=== PATIENT | male | born 1950 | race Caucasian/White ===

== ENCOUNTER 2017-11-29 15:27 | Inpatient (IN) | payer MEDICARE ==
--- NOTE | 2017-11-29 15:33 | ED ---
Complex/Multi-Sys Presentation - HPI Summary HPI Summary: Spoke with Dr. Fowler prior to ED visit. 67 y/o male sent from outpatient CT scan c/o constant weakness for around 1 week. Associated sx: fever for 3-4 days. Pt has an abscess at his pelvis, per Dr. Fowler. Surgeon Dr. Yun at [facility]. Pt had Sx 11/12/17 prostate removal. PMHx prostate CA. Pt also c/o mild tenderness at site of surgery. Catheter in place. This is scribe Ed Jess documenting for attending Ricky Moreland MD. - History Of Current Complaint Hx Obtained From: Patient Onset/Duration: Lasting Days, Still Present Timing: Constant Associated Signs And Symptoms: Positive: Weakness, Fever, Other - pain at site of surgery - Allergies/Home Medications Allergies/Adverse Reactions: Allergies Allergy/AdvReac Type Severity Reaction Status Date / Time No Known Allergies Allergy Verified 12/29/16 15:17 Home Medications: Home Medications Calcipotriene 0.005 % TOPICAL DAILY PRN 11/29/17 [History Confirmed 11/29/17] Cholecalciferol TAB* [Vitamin D TAB*] 4,000 unit PO DAILY 11/29/17 [History Confirmed 11/29/17] Cyanocobalamin TAB* [Vitamin B12 TAB*] 500 mcg PO DAILY 11/29/17 [History Confirmed 11/29/17] Etanercept SYR (NF) [Enbrel (NF)] 50 mg SUBCUT WEEKLY 11/29/17 [History Confirmed 11/29/17] Folic Acid TAB* [Folvite TAB*] 1 mg PO DAILY 11/29/17 [History Confirmed ] Gabapentin CAP(*) [Neurontin 300 CAP(*)] 300 mg PO QAM 11/29/17 [History Confirmed 11/29/17] Gabapentin CAP(*) [Neurontin 300 CAP(*)] 600 mg PO BEDTIME 11/29/17 [History Confirmed 11/29/17] Hydrochlorothiazide TAB* [Hydrodiuril TAB*] 12.5 mg PO DAILY 11/29/17 [History Confirmed 11/29/17] Pyridoxine HCl (Vitamin B6) [Vitamin B-6] 100 mg PO DAILY 11/29/17 [History Confirmed 11/29/17] amLODIPine TAB* [Norvasc 5 mg TAB*] 10 mg PO DAILY 11/29/17 [History Confirmed 11/29/17] celeCOXIB CAP* [CeleBREX CAP*] 200 mg PO BID 11/29/17 [History Confirmed ] PMH/Surg Hx/FS Hx/Imm Hx Previously Healthy: No Endocrine/Hematology History: Denies: Hx Diabetes Cardiovascular History: Reports: Hx Hypertension - ON MEDS Denies: Hx Pacemaker/ICD History: Denies: Hx Renal Disease Musculoskeletal History: Reports: Hx Rheumatoid Arthritis Sensory History: Denies: Hx Hearing Aid Psychiatric History: Denies: Hx Panic Disorder - Surgical History Surgery Procedure, Year, and Place: TONSILS Review of Systems Positive: Fever. Negative: Chills Negative: Erythema Negative: Sore Throat Negative: Chest Pain Negative: Shortness Of Breath, Cough Positive: Abdominal Pain - at site of surgery. Negative: Vomiting, Nausea Negative: dysuria, hematuria Negative: Myalgia, Edema Negative: Rash Neurological: Other - no dizziness All Other Systems Reviewed And Are Negative: Yes Physical Exam - Summary Physical Exam Summary: Constitutional: Well-developed, Well-nourished, Alert. (-) Distressed Skin: Dry. Hot to touch, HENT: Normocephalic; Atraumatic Eyes: Conjunctiva normal Neck: Musculoskeletal ROM normal neck. (-) JVD, (-) Stridor, (-) Tracheal deviation Cardio: Rhythm regular, rate normal, Heart sounds normal; Intact distal pulses; The pedal pulses are 2+ and symmetric. Radial pulses are 2+ and symmetric. (-) Murmur Pulmonary/Chest wall: Effort normal. (-) Respiratory distress, (-) Wheezes, (-) Rales Abd: Soft, mild suprapubic tenderness, (-) Distension, (-) Guarding, (-) Rebound Musculoskeletal: (-) Edema Lymph: (-) Cervical adenopathy Neuro: Alert, Oriented x3 Psych: Mood and affect Normal Triage Information Reviewed: Yes Vital Signs Reviewed: Yes Diagnostics - Laboratory Result Diagrams: 11/29/17 15:50 11/29/17 15:50 Lab Statement: Any lab studies that have been ordered have been reviewed, and results considered in the medical decision making process. - Radiology CXR Radiology Interpretation Completed By: Radiologist - Pulmonary vascular congestion - Ultrasound No standard instances Ultrasound Interpretation Completed By: Radiologist - ABSCESS DRAINAGE ULTRASOUND - #. Successful ultrasound-guided drainage catheter placement 2 large loculated elevated fluid collection via RIGHT para midline groin approach. #. Sample sent to the lab for microbiology analysis per direction of referring physician. - EKG 1 EKG Interpretation: 15:42 - SR @ 96 BPM. No STEMI. Re-Evaluation - Re-Evaluation 1 Re-Evaluation Time: 16:28 Comment: discuss plan of care Complex Multi-Symp Course/Dx Course Of Treatment: Spoke with Dr. Yun ([facility] Surgeon) @ 16:07. Medical admit to [facility] by Dr. Damico. - Diagnoses Provider Diagnoses: Sepsis, Postoperative abscess - Physician Notifications Discussed Care Of Patient With: Marshall Yee Time Discussed With Above Provider: 15:48 Discharge - Sign-Out/Discharge Documenting (check all that apply): Patient Departure - Discharge Plan Condition: Stable Disposition: ADMITTED TO [facility] Referrals: Otoniel Alberto MD [Primary Care Provider] -
[2017-11-29] MEDS ORDERED: Vancomycin(*) 1,250 MG in NS 0.9% 250 ML* 250 ML IVPB ONE (15:35)
[2017-11-29] MEDS ORDERED: Piperacillin/Tazobac ADVAN(*) 3.375 GM in NS 0.9% 100 ML* 100 ML IVPB ONE (15:35)
[2017-11-29] MEDS: NS 0.9% 1000 ML*IV.FLUID IV ONE ×3 (15:38→16:02)
[2017-11-29] MEDS ORDERED: Acetaminophen TAB* 325 MG PO ONE (15:45)
[2017-11-29] MEDS ORDERED: metroNIDAZOLE IV 500 MG/100ML* 500 MG/100 ML BAG IVPB ONE (15:47)
[2017-11-29 16:02] LABS: ABS Basophils 0 10^3/ul (0-0.2); ABS Eosinophils 0 10^3/ul (0-0.6); ABS Lymphocytes 0.5 10^3/ul (1.0-4.8); ABS Monocytes 0.9 10^3/ul (0-0.8); ABS Neutrophils 10.9 10^3/ul (1.5-7.7); ABS Nucleated RBC 0 10^3/ul; Eosinophil % 0.1 % (0-6); Hematocrit 29 % (42-52); Hemoglobin 10.2 g/dl (14.0-18.0); Lymphocyte % 4.4 % (25-47); Mean Corpuscular HGB Conc 35 g/dl (31-36); Mean Corpuscular Hemoglobin 33 pg (27-31); Mean Corpuscular Volume 95 fL (80-94); Mean Platelet Volume 7.4 um3 (7.4-10.4); Nucleated Red Blood Cells % 0; Platelet Count 328 10^3/ul (150-450); Red Blood Count 3.08 10^6/ul (4.00-5.40); Red Cell Distribution Width 15 % (10.5-15); White Blood Count 12.4 10^3/ul (3.5-10.8)
[2017-11-29 16:10] LABS: INR 1.37 (0.77-1.02)
--- NOTE | 2017-11-29 16:21 | RAD ---
HISTORY: SEPSIS COMPARISONS: None VIEWS: 1: frontal portable view of the chest at 4:03 PM FINDINGS: LINES AND TUBES: None. CARDIOMEDIASTINAL SILHOUETTE: The cardiomediastinal silhouette is normal for portable technique. PLEURA: The costophrenic angles are sharp. No pleural abnormalities are noted. LUNG PARENCHYMA: There is prominence of the central pulmonary vasculature. ABDOMEN: The upper abdomen is clear. There is no subphrenic gas. BONES AND SOFT TISSUES: No bone or soft tissue abnormalities are noted. IMPRESSION: PULMONARY VASCULAR CONGESTION.
[2017-11-29] MEDS ORDERED: fentaNYL* 50 MCG/ML 2 ML VIAL (100 MCG VIAL) ONE (16:24)
[2017-11-29] MEDS ORDERED: Naloxone* 0.4 MG/ML 1 ML VIAL ONE (16:25)
[2017-11-29 16:27] LABS: EGFR Non-African American 71.8 (>60)
--- NOTE | 2017-11-29 17:48 | RAD ---
INDICATION: 2.5 weeks post prostatectomy. Fever and elevated white count. Large loculated pelvic fluid collection on CT. Image guided percutaneous abscess drainage catheter placement requested. COMPARISON: November 29, 2017 CT. Written informed consent obtained. Timeout performed. PROCEDURE: Suitable site for percutaneous drainage catheter placement identified at the para midline RIGHT groin medial to the femoral vessels and inferior to the inferior epigastric vessels. Doppler utilized for identification of the blood vessels. Inferior to cephalad approach planned. Following routine aseptic skin prep the soft tissues superficial to the collection were anesthetized with 5 mL 1% lidocaine. Through a small skin niko utilizing trocar technique an 8-Brazilian skater catheter was advanced into the collection. Stylette removed and catheter advanced. Prompt return of approximate 50 mL clear straw fluid. Pigtail locked. Catheter attached to drainage bag. Catheter tethered to the skin with Prolene suture. The patient tolerated the procedure without immediate complication. IMPRESSION: #. Successful ultrasound-guided drainage catheter placement 2 large loculated elevated fluid collection via RIGHT para midline groin approach. #. Sample sent to the lab for microbiology analysis per direction of referring physician.
[2017-11-29] MEDS ORDERED: Potassium Chlor TAB* 20 MEQ TAB.ER PO STA (18:43)
[2017-11-29] MEDS ORDERED: NS 0.9% 1000 ML* 1,000 ML IV SCH (18:45)
[2017-11-29] MEDS ORDERED: Vancomycin per Pharmacy* NOTE FOLLOW UP PRN (19:46)
--- NOTE | 2017-11-29 20:01 | HP ---
ADMITTING HISTORY AND PHYSICAL: DATE OF ADMISSION: 11/29/17 CHIEF COMPLAINT: Weakness and fever. HISTORY OF PRESENT ILLNESS: The patient is a 67-year-old gentleman with history of rheumatoid arthritis, hypertension, and prostate carcinoma, status post robotic prostatectomy in [facility] on 11/12/17, who presented with the above chief complaint. He mentions that since his recent surgery, he has been doing well; and, in fact, had seen his doctors in [facility] on 11/21/17 for a followup; however, at that time, they noted that his catheter could not be removed and in fact may have had some urine leak at that time. He was then sent home and was observed and since then, he mentions that he has been feeling weak for at least about a week and this then gradually progressed to him having fever about 3 to 4 days prior to admission prompting him to call his doctors in [facility], who then suggested that he have a CT scan of his abdomen and pelvis. He was then referred to the ER for possibility of a pelvic abscess. In the ED, Dr. Yee then informed the patient, who evaluated the patient, who agreed with percutaneous drain placement being placed by Interventional Radiology. In the ED, he had received Zosyn, vancomycin, 1 L normal saline bolus, Tylenol, and Flagyl. PAST MEDICAL HISTORY: Prostate CA, rheumatoid arthritis, hypertension, psoriatic arthritis, and neuropathy. PAST SURGICAL HISTORY: Status post robotic prostatectomy. ALLERGIES: NKDA. FAMILY HISTORY: Breast cancer, his mother and sister; hypertension, his father. 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 He quit smoking back in 2010 and has an average of 20-pack years. He does drink occasionally. He lives with his . REVIEW OF SYSTEMS: The patient complained of weakness and recent febrile episode as described above and hematuria, but denied any recent headaches, dizziness, nausea, vomiting, chest pain, shortness of breath, abdominal pain, diarrhea, constipation, myalgias, arthralgias, throat pain, or new skin lesions. The rest of the 14-point review of systems is otherwise unremarkable. PHYSICAL EXAMINATION GENERAL APPEARANCE: The patient is awake, alert, and oriented x3, not in acute distress. VITAL SIGNS: Most recent vital signs of record with temperature of 100.7 degrees Fahrenheit, 83 beats per minute, 20 per minute respiratory rate, blood pressure of 142/59. HEENT: Normocephalic, atraumatic. PERRLA. Extraocular muscles intact. Negative for icterus. Moist oral mucosa. Negative throat erythema. NECK: Soft, supple with no cervical lymphadenopathy, no JVD. CHEST: Clear to auscultation bilaterally. Good air entry. No wheezes, rales, or rhonchi. HEART: S1, S2 within normal limits. Regular rate and rhythm. No murmurs, rubs , or gallops. ABDOMEN: Soft, nondistended, nontender. Normoactive bowel sounds x4 quadrants. EXTREMITIES: No cyanosis, clubbing with mild 1+ nonpitting edema. DIAGNOSTIC STUDIES/LAB DATA: Most recent pertinent laboratories: H and H are 10.7 and 29. Potassium is mildly low at 3.4. Ultrasound showed successful ultrasound-guided drainage in place in the loculations found. Chest x-ray shows pulmonary vascular congestion. ASSESSMENT AND PLAN: As follows: 1. Pelvic abscess, status post drainage placement. We will continue with Zosyn and vancomycin at this time and we will continue to follow cultures. I will decrease the rate of IV fluids to 100 cc given the above chest x-ray, although he does not show other signs and symptoms that would be consistent with congestive heart failure and he is certainly not short of breath. Will consider ID consultation in AM 2. Hypokalemia. We will replace potassium as ordered and we will continue watchful waiting. 3. Hypertension. Continue amlodipine. 4. Anemia, likely secondary to gross hematuria. We will check iron studies, B12, and folate levels. We will check for type and screen and we will recheck CBC at 12 a.m. and we will continue watchful waiting. 5. Peripheral neuropathy. We will place the patient on gabapentin. 6. DVT prophylaxis. It is contraindicated at this point given his gross hematuria and anemia. 7. Disposition. For PT eval. We will await any further input from Dr. Yee/Urology. [id number]/[facility] #: [id number] OLYA
[2017-11-29] MEDS: Piperacillin/Tazobac ADVAN(*) 3.375 GM in NS 0.9% 100 ML* 100 ML IVPB SCH (20:15)
[2017-11-29] MEDS: Gabapentin CAP(*) 300 MG PO SCH (20:15)
[2017-11-29 20:34] LABS: Urine Color Red
[2017-11-29 20:37] LABS: Urine Appearance Cloudy; Urine Blood 3+ (Negative); Urine Ketones Negative (Negative); Urine Protein 2+(100 mg/dL) (Negative); Urine Red Blood Cell 3+(>10/hpf) (Absent); Urine Specific Gravity 1.024 (1.010-1.030); Urine Urobilinogen Negative (Negative); Urine White Blood Cell 3+(>20/hpf) (Absent)
[2017-11-30 00:41] LABS: ABS Basophils 0 10^3/ul (0-0.2); ABS Eosinophils 0 10^3/ul (0-0.6); ABS Lymphocytes 1.2 10^3/ul (1.0-4.8); ABS Monocytes 1.1 10^3/ul (0-0.8); ABS Neutrophils 5.6 10^3/ul (1.5-7.7); ABS Nucleated RBC 0 10^3/ul; Eosinophil % 0.3 % (0-6); Hematocrit 29 % (42-52); Hemoglobin 10.1 g/dl (14.0-18.0); Lymphocyte % 15.5 % (25-47); Mean Corpuscular HGB Conc 34 g/dl (31-36); Mean Corpuscular Hemoglobin 33 pg (27-31); Mean Corpuscular Volume 96 fL (80-94); Mean Platelet Volume 7.6 um3 (7.4-10.4); Nucleated Red Blood Cells % 0; Platelet Count 312 10^3/ul (150-450); Red Blood Count 3.05 10^6/ul (4.00-5.40); Red Cell Distribution Width 14 % (10.5-15)
[2017-11-30] MEDS: Piperacillin/Tazobac ADVAN(*) 3.375 GM in NS 0.9% 100 ML* 100 ML IVPB SCH ×3 (03:51→20:26)
[2017-11-30] MEDS: Acetaminophen TAB* 325 MG PO PRN ×2 (05:22→21:45)
[2017-11-30] MEDS ORDERED: Vancomycin(*) 1,250 MG in NS 0.9% 250 ML* 250 ML IVPB SCH (06:00)
[2017-11-30 06:25] LABS: Hematocrit 26 % (42-52); Mean Corpuscular HGB Conc 35 g/dl (31-36); Mean Corpuscular Hemoglobin 33 pg (27-31); Mean Corpuscular Volume 95 fL (80-94); Mean Platelet Volume 7.9 um3 (7.4-10.4); Platelet Count 269 10^3/ul (150-450); Red Blood Count 2.74 10^6/ul (4.00-5.40); Red Cell Distribution Width 14 % (10.5-15); White Blood Count 6.5 10^3/ul (3.5-10.8)
[2017-11-30 06:46] LABS: EGFR Non-African American 80.8 (>60)
[2017-11-30] MEDS: Gabapentin CAP(*) 300 MG PO SCH ×2 (08:53→20:26)
[2017-11-30] MEDS: Cholecalciferol TAB* 1000 UNITS PO SCH (08:55)
[2017-11-30] MEDS: Pyridoxine TAB* 50 MG PO SCH (08:56)
[2017-11-30] MEDS: amLODIPine TAB* 5 MG PO SCH (08:57)
[2017-11-30] MEDS: Cyanocobalamin TAB* 500 MCG PO SCH (08:58)
[2017-11-30] MEDS: Folic Acid TAB* 1 MG PO SCH (08:58)
[2017-11-30] MEDS ORDERED: Potassium Chlor TAB* 20 MEQ TAB.ER PO STA (09:05)
[2017-11-30 13:29] LABS: ABS Basophils 0 10^3/ul (0-0.2); ABS Eosinophils 0 10^3/ul (0-0.6); ABS Monocytes 0.7 10^3/ul (0-0.8); ABS Neutrophils 5.1 10^3/ul (1.5-7.7); ABS Nucleated RBC 0 10^3/ul; Eosinophil % 0.5 % (0-6); Hematocrit 30 % (42-52); Hemoglobin 10.1 g/dl (14.0-18.0); Lymphocyte % 14.9 % (25-47); Mean Corpuscular HGB Conc 34 g/dl (31-36); Mean Corpuscular Hemoglobin 33 pg (27-31); Mean Corpuscular Volume 96 fL (80-94); Mean Platelet Volume 7.6 um3 (7.4-10.4); Nucleated Red Blood Cells % 0; Platelet Count 311 10^3/ul (150-450); Red Blood Count 3.09 10^6/ul (4.00-5.40); Red Cell Distribution Width 15 % (10.5-15); White Blood Count 6.9 10^3/ul (3.5-10.8)
--- NOTE | 2017-11-30 15:42 | PN ---
Subjective Date of Service: 11/30/17 Interval History: Pt seen and examined. Meds and labs reviewed ROS: Denied JACOBS/dizziness, F/C, N/V, CP, SOB, increased cough, sputum production , abd pain, diarrhea, constipation, dysuria, myalgias, arthralgias, throat pain , and new skin lesions. The rest of the 14 point ROS are unremarkable. PHYSICAL EXAM: GEN APPEARANCE: Awake, not in acute distress HEENT: NC/AT, PERRLA, moist oral mucosa, (-) throat erythema NECK: Soft, supple, (-) cervical LAD, (-)JVD HEART: S1S2 WNL, RRR, No MRG CHEST: CTA, BL, GAE, No W/R/R ABD: Soft, ND/NT, NABS 4x Q EXT: No C/C/E SKIN: Warm to touch PSYCH: No active psychosis, hallucinations, depression, SI/HI Objective Active Medications: Acetaminophen (Tylenol Tab*) 650 mg PO Q6H PRN PRN Reason: FEVER/PAIN Last Admin: 11/30/17 05:22 Dose: 650 mg Amlodipine Besylate (Norvasc Tab*) 10 mg PO DAILY [facility] Last Admin: 11/30/17 08:57 Dose: 10 mg Cholecalciferol (Vitamin D Tab*) 4,000 units PO DAILY [facility] Last Admin: 11/30/17 08:55 Dose: 4,000 units Cyanocobalamin (Vitamin B12 Tab*) 500 mcg PO DAILY [facility] Last Admin: 11/30/17 08:58 Dose: 500 mcg Folic Acid (Folvite Tab*) 1 mg PO DAILY [facility] Last Admin: 11/30/17 08:58 Dose: 1 mg Gabapentin (Neurontin Cap(*)) 300 mg PO QAM [facility] Last Admin: 11/30/17 08:53 Dose: 300 mg Gabapentin (Neurontin Cap(*)) 600 mg PO BEDTIME [facility] Last Admin: 11/29/17 20:15 Dose: 600 mg Piperacillin Sod/Tazobactam (Sod 3.375 gm/ Sodium Chloride) 100 mls @ 25 mls/ hr IVPB Q8H [facility] Last Admin: 11/30/17 13:09 Dose: 25 mls/hr Pyridoxine HCl (Vitamin B6 Tab*) 100 mg PO DAILY [facility] Last Admin: 11/30/17 08:56 Dose: 100 mg Vital Signs - 8 hr 11/30/17 08:53 Respiratory 18 Rate Oxygen Devices in Use Now: None Result Diagrams: 11/30/17 13:07 11/30/17 06:12 Microbiology and Other Data: Microbiology 11/29/17 20:20 Urine Culture - Preliminary Urine Enterococcus Faecalis 11/29/17 17:25 Gram Stain - Final Body Fluid - Not Otherwise Specified Body Fluid Culture - Preliminary No Growth Day 1 Assess/Plan/Problems-Billing Assessment: - Patient Problems (1) Pelvic mass Current Visit: Yes Status: Acute Code(s): R19.00 - INTRA-ABD AND PELVIC SWELLING, MASS AND LUMP, UNSP SITE SNOMED Code(s): 78031833 Comment: -Presumed abscess -D/W Dr. Mortensen who mentions that the pelvic mass may be a seroma given fluid in pelvic percutaneous drain appears yellowish serous fluid in comparison to urine in catheter, which is grossly bloodyunclear why there is this discrepancy if the pelvic drain is also due to urine. Per Dr. Mortensen, he will obtain creatinine of each of these fluids to compare to see -Given Urine culture shows E. fecalis and fluid culture is normal, vancomycin has been recommended to be D/Cddefer with Dr. Mortensen -Will Continue Zosyn (2) Hypokalemia Current Visit: Yes Status: Acute Code(s): E87.6 - HYPOKALEMIA SNOMED Code( s): 41007628 Comment: -Corrected -Will continue watchful waiting (3) Anemia Current Visit: Yes Status: Acute Code(s): D64.9 - ANEMIA, UNSPECIFIED SNOMED Code(s): 291610508 Comment: #Anemia of chronic disease with Iron deficiency Anemia: -SIMEON is likely due to gross hematuria -AOCD is likely due to multiple comorbidities such as psoriatic arthritis and RA -Will give pt IV Iron Dextran and will touch base with pharmacy to independently verify calculations, then will order to replenish Iron stores -Folate and B12 levels normal (4) Hypokalemia Current Visit: Yes Status: Acute Code(s): E87.6 - HYPOKALEMIA SNOMED Code( s): 53948942 Comment: -Corrected -Continue watchful waiting (5) Peripheral neuropathy Current Visit: Yes Status: Acute Code(s): G62.9 - POLYNEUROPATHY, UNSPECIFIED SNOMED Code(s): 959015832 Comment: -Idiopathic -Continue Gabapentin (6) DVT prophylaxis Current Visit: Yes Status: Acute Code(s): ODS2868 - SNOMED Code(s): 728213488 Comment: -Hold pharmacologic prophylaxis -Continue SCDs and FLORA stockings Status and Disposition: -As above -For D/C home when ready -Appreciate PT eval
[2017-11-30] MEDS ORDERED: NS 0.9% IVPB ONE (16:00)
[2017-11-30] MEDS ORDERED: IRON SUCROSE IVPB ONE (16:00)
--- NOTE | 2017-11-30 16:34 | CONS ---
CONSULTATION REPORT: DATE OF CONSULT: 11/30/17 REQUESTING PHYSICIAN: Dr. Joseph. CONSULTING SERVICE: Infectious Disease. REASON FOR CONSULT: Pelvic collection. IMPRESSION: 1. Status post robotic total prostatectomy, 11/12/17. He did well initially. At a recent followup, imaging there led his urologist not to remove the Maguire catheter. Few days later developed fevers, chills, malaise, led his urologist to obtain a CT scan that showed a 13 x 5 x 16 cm collection, which is loculated and enhancing from the prostatic fossa to behind the bladder. He had a drain placed by Interventional Radiology. The fluid in his leg bag looks like urine. Gram stain shows nucleated cells, no organisms and the cultures negative 24 hours. He either has an abscess there or collection leaked urine. The fact that it is enhancing and that he has had fever does not necessitate this being an abscess. He could have a same inflammatory response to urine. He has pyuria as well, urine culture is pending. 2. Prostate cancer, status post prostatectomy. 3. Obesity. 4. Maguire catheter since his prostatectomy. 5. Rheumatoid arthritis, on Enbrel. RECOMMENDATIONS: We will continue the Zosyn to cover abdominal pathogen. We will stop his vancomycin. He has creatinine studies of the urine and body fluid pending. HISTORY OF PRESENT ILLNESS: This is a 67-year-old man who had a prostatectomy early November. He was doing well initially and was unable to have the Maguire catheter removed at the 2-week palak as previously suggested because of some imaging results obtained with his urologist. He did note blood around the Maguire catheter over the last couple of weeks and has had blood in his urine the whole time. He felt well until few days ago, developed fevers, chills, malaise. His urologist obtained a CT scan with the findings as above and then directed him to the emergency room where he was seen by Dr. Yee who obtained interventional radiology evaluation who drained the collection. Gram stain and culture result as above. His temperature was 40 degrees on admission. He has not had a fever since then and his energy and rigors are much better. He then felt like his usual self, not quite back there yet though. He has no other prosthetic material present. He has no joint symptoms other than his baseline issues. PAST MEDICAL HISTORY: 1. Rheumatoid arthritis. 2. Obesity. 3. Psoriatic arthritis. 4. Hypertension. 5. Neuropathy. 6. Prostate cancer, status post prostatectomy. MEDICATIONS: 1. Tylenol. 2. Amlodipine. 3. Cholecalciferol. 4. Cyanocobalamin. 5. Folic acid. 6. Gabapentin. 7. Pyridoxine. 8. Vancomycin 1250 mg every 12 hours. 9. Zosyn 3.375 g every 8 hours by extended infusion. ALLERGIES: No known drug allergies. FAMILY HISTORY: No recurrent infections or tuberculosis. SOCIAL HISTORY: He lives in [place]. 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 No travel. No sick contacts. REVIEW OF SYSTEMS: All negative except as noted above in the history of present illness. PHYSICAL EXAM: Vital Signs: Temperature is 37.2, heart rate 80, respiratory rate 16, blood pressure 134/60, oxygen saturation 99% on room air. In general, he is awake, not in distress. Neurologic: He is oriented x3. Follows all commands. He moves all of his extremities. HEENT: There is no conjunctival hemorrhage. Oropharynx is without lesions. Neck is supple without mass. Heart is regular rate and rhythm without murmurs, rubs, or gallops. Lungs are clear to auscultation bilaterally. Abdomen: There are bowel sounds present. The lower abdominal incisions are all healed without erythema or tenderness. Skin: There is no rash or splinter hemorrhages. Musculoskeletal: There is no spine tenderness to palpation. No joint synovitis. Genitourinary: There is a Maguire catheter with reddish urine. There is a pelvic drain that is with clear yellowish fluid. LABORATORY DATA: White blood cell count 7, hemoglobin 10, platelets 311. Creatinine 0.9. CRP 240. Please see impressions and recommendations as outlined above, which I have discussed with Dr. Joseph. Thanks for asking me to see Mr. Small in consultation. [id number]/[facility] #: [id number] OLYA
[2017-12-01] MEDS: Piperacillin/Tazobac ADVAN(*) 3.375 GM in NS 0.9% 100 ML* 100 ML IVPB SCH (03:50)
[2017-12-01] MEDS ORDERED: Vancomycin Trough Check NOTE FOLLOW UP ONE (05:30)
[2017-12-01 07:11] LABS: EGFR Non-African American 93.4 (>60)
[2017-12-01] MEDS: Pyridoxine TAB* 50 MG PO SCH (08:13)
[2017-12-01] MEDS: Folic Acid TAB* 1 MG PO SCH (08:13)
[2017-12-01] MEDS: Acetaminophen TAB* 325 MG PO PRN ×2 (08:13→15:51)
[2017-12-01] MEDS: Cholecalciferol TAB* 1000 UNITS PO SCH (08:13)
[2017-12-01] MEDS: Gabapentin CAP(*) 300 MG PO SCH ×2 (08:14→20:36)
[2017-12-01] MEDS: amLODIPine TAB* 5 MG PO SCH (08:14)
[2017-12-01] MEDS: Cyanocobalamin TAB* 500 MCG PO SCH (08:14)
[2017-12-01] MEDS: Amoxicillin/Clavulanate TAB* 875 MG PO SCH ×2 (12:49→20:37)
--- NOTE | 2017-12-01 14:31 | PN ---
Subjective Date of Service: 12/01/17 Interval History: Pt seen and examined. Meds and labs reviewed ROS: Denied JACOBS/dizziness, F/C, N/V, CP, SOB, increased cough, sputum production , abd pain, diarrhea, constipation, dysuria, myalgias, arthralgias, throat pain , and new skin lesions. The rest of the 14 point ROS are unremarkable. PHYSICAL EXAM: GEN APPEARANCE: Awake, not in acute distress HEENT: NC/AT, PERRLA, moist oral mucosa, (-) throat erythema NECK: Soft, supple, (-) cervical LAD, (-)JVD HEART: S1S2 WNL, RRR, No MRG CHEST: CTA, BL, GAE, No W/R/R ABD: Soft, ND/NT, NABS 4x Q EXT: No C/C/E SKIN: Warm to touch PSYCH: No active psychosis, hallucinations, depression, SI/HI Objective Active Medications: Acetaminophen (Tylenol Tab*) 650 mg PO Q6H PRN PRN Reason: FEVER/PAIN Last Admin: 12/01/17 08:13 Dose: 650 mg Amlodipine Besylate (Norvasc Tab*) 10 mg PO DAILY [facility] Last Admin: 12/01/17 08:14 Dose: 10 mg Amoxicillin/Clavulanate Potassium (Augmentin Tab*) 875 mg PO BID [facility] Last Admin: 12/01/17 12:49 Dose: 875 mg Cholecalciferol (Vitamin D Tab*) 4,000 units PO DAILY [facility] Last Admin: 12/01/17 08:13 Dose: 4,000 units Cyanocobalamin (Vitamin B12 Tab*) 500 mcg PO DAILY [facility] Last Admin: 12/01/17 08:14 Dose: 500 mcg Folic Acid (Folvite Tab*) 1 mg PO DAILY [facility] Last Admin: 12/01/17 08:13 Dose: 1 mg Gabapentin (Neurontin Cap(*)) 300 mg PO QAM [facility] Last Admin: 12/01/17 08:14 Dose: 300 mg Gabapentin (Neurontin Cap(*)) 600 mg PO BEDTIME [facility] Last Admin: 11/30/17 20:26 Dose: 600 mg Pyridoxine HCl (Vitamin B6 Tab*) 100 mg PO DAILY [facility] Last Admin: 12/01/17 08:13 Dose: 100 mg Vital Signs - 8 hr 12/01/17 12/01/1718 07:30 08:14 09:02 Temperature 98.5 F Pulse Rate 75 Respiratory 20 18 18 Rate Blood Pressure 130/68 (mmHg) O2 Sat by Pulse 94 Oximetry Oxygen Devices in Use Now: None Result Diagrams: 11/30/17 13:07 12/01/17 06:29 Microbiology and Other Data: Microbiology 11/29/17 20:20 Urine Culture - Preliminary Urine Enterococcus Faecalis 11/29/17 17:25 Gram Stain - Final Body Fluid - Not Otherwise Specified Body Fluid Culture - Preliminary No Growth Day 1 Assess/Plan/Problems-Billing Assessment: - Patient Problems (1) Pelvic mass Current Visit: Yes Status: Acute Code(s): R19.00 - INTRA-ABD AND PELVIC SWELLING, MASS AND LUMP, UNSP SITE SNOMED Code(s): 82751210 Comment: -Presumed abscess on admission, however, 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 fecalis consistent with Urine culture -D/W Dr. Nguyễn today and reviewed laboratory data with him in person; given elevated creatinine in fluid collection, it seems the fluid is consistent with urine that is loculated from a likely bleeding surgical anastomosiscausing gross hematuria; Dr. Nguyễn mentions he will touch-base with Urologist in [facility] -Given Urine culture shows E. fecalis and fluid culture is normal, vancomycin has been recommended to be D/Cddefer with Dr. Solano -Continue Zosyn for 1 more day and if blood cultures continue to be negative by tomorrow with stable and improving clinical picture, consider narrowing antibiotic to Quinolones based on sensitivity data to E. fecalis in Urine culture (2) Anemia Current Visit: Yes Status: Acute Code(s): D64.9 - ANEMIA, UNSPECIFIED SNOMED Code(s): 271637832 Comment: #Anemia of chronic disease with Iron deficiency Anemia: -SIMEON is likely due to gross hematuria -AOCD is likely due to multiple comorbidities such as psoriatic arthritis and RA -Given 500 mg of Iron Sucrose 11/30 -Folate and B12 levels normal (3) Hypokalemia Current Visit: Yes Status: Acute Code(s): E87.6 - HYPOKALEMIA SNOMED Code( s): 61148017 Comment: -Continue watchful waiting (4) Peripheral neuropathy Current Visit: Yes Status: Acute Code(s): G62.9 - POLYNEUROPATHY, UNSPECIFIED SNOMED Code(s): 159049168 Comment: -Idiopathic -Continue Gabapentin (5) DVT prophylaxis Current Visit: Yes Status: Acute Code(s): FMV3440 - SNOMED Code(s): 281597652 Comment: -Hold pharmacologic prophylaxis -Continue SCDs and FLORA stockings Status and Disposition: -As above -For D/C home when ready -Appreciate PT eval
[2017-12-02 07:20] LABS: ABS Basophils 0 10^3/ul (0-0.2); ABS Eosinophils 0.2 10^3/ul (0-0.6); ABS Lymphocytes 1.2 10^3/ul (1.0-4.8); ABS Monocytes 0.7 10^3/ul (0-0.8); ABS Neutrophils 6.1 10^3/ul (1.5-7.7); ABS Nucleated RBC 0 10^3/ul; Eosinophil % 2.2 % (0-6); Hematocrit 30 % (42-52); Hemoglobin 10.7 g/dl (14.0-18.0); Lymphocyte % 14.5 % (25-47); Mean Corpuscular HGB Conc 36 g/dl (31-36); Mean Corpuscular Hemoglobin 34 pg (27-31); Mean Corpuscular Volume 94 fL (80-94); Mean Platelet Volume 7.3 um3 (7.4-10.4); Nucleated Red Blood Cells % 0; Platelet Count 337 10^3/ul (150-450); Red Cell Distribution Width 15 % (10.5-15); White Blood Count 8.2 10^3/ul (3.5-10.8)
[2017-12-02 07:39] LABS: EGFR Non-African American 96.1 (>60)
[2017-12-02] MEDS: Pyridoxine TAB* 50 MG PO SCH (08:45)
[2017-12-02] MEDS: Acetaminophen TAB* 325 MG PO PRN (08:46)
[2017-12-02] MEDS: Gabapentin CAP(*) 300 MG PO SCH ×2 (08:46→22:16)
[2017-12-02] MEDS: Cholecalciferol TAB* 1000 UNITS PO SCH (08:47)
[2017-12-02] MEDS: Cyanocobalamin TAB* 500 MCG PO SCH (08:48)
[2017-12-02] MEDS: amLODIPine TAB* 5 MG PO SCH (08:48)
[2017-12-02] MEDS: Folic Acid TAB* 1 MG PO SCH (08:48)
[2017-12-02] MEDS: Amoxicillin/Clavulanate TAB* 875 MG PO SCH ×2 (08:49→22:17)
--- NOTE | 2017-12-02 12:47 | PN ---
Subjective Date of Service: 12/02/17 Interval History: Pt seen and examined. Meds and labs reviewed ROS: Denied JACOBS/dizziness, F/C, N/V, CP, SOB, increased cough, sputum production , abd pain, diarrhea, constipation, dysuria, myalgias, arthralgias, throat pain , and new skin lesions. The rest of the 14 point ROS are unremarkable. PHYSICAL EXAM: GEN APPEARANCE: Awake, not in acute distress HEENT: NC/AT, PERRLA, moist oral mucosa, (-) throat erythema NECK: Soft, supple, (-) cervical LAD, (-)JVD HEART: S1S2 WNL, RRR, No MRG CHEST: CTA, BL, GAE, No W/R/R ABD: Soft, ND/NT, NABS 4x Q EXT: No C/C/E SKIN: Warm to touch PSYCH: No active psychosis, hallucinations, depression, SI/HI Objective Active Medications: Acetaminophen (Tylenol Tab*) 650 mg PO Q6H PRN PRN Reason: FEVER/PAIN Last Admin: 12/02/17 08:46 Dose: 650 mg Amlodipine Besylate (Norvasc Tab*) 10 mg PO DAILY [facility] Last Admin: 12/02/17 08:48 Dose: 10 mg Amoxicillin/Clavulanate Potassium (Augmentin Tab*) 875 mg PO BID [facility] Last Admin: 12/02/17 08:49 Dose: 875 mg Cholecalciferol (Vitamin D Tab*) 4,000 units PO DAILY [facility] Last Admin: 12/02/17 08:47 Dose: 4,000 units Cyanocobalamin (Vitamin B12 Tab*) 500 mcg PO DAILY [facility] Last Admin: 12/02/17 08:48 Dose: 500 mcg Folic Acid (Folvite Tab*) 1 mg PO DAILY [facility] Last Admin: 12/02/17 08:48 Dose: 1 mg Gabapentin (Neurontin Cap(*)) 300 mg PO QAM [facility] Last Admin: 12/02/17 08:46 Dose: 300 mg Gabapentin (Neurontin Cap(*)) 600 mg PO BEDTIME [facility] Last Admin: 12/01/17 20:36 Dose: 600 mg Pyridoxine HCl (Vitamin B6 Tab*) 100 mg PO DAILY [facility] Last Admin: 12/02/17 08:45 Dose: 100 mg Vital Signs - 8 hr 12/02/17 12/02/1718 07:10 08:00 08:46 Temperature 98.4 F Pulse Rate 78 Respiratory 16 16 16 Rate Blood Pressure 123/65 (mmHg) O2 Sat by Pulse 95 Oximetry 12/02/17 10:48 Temperature Pulse Rate Respiratory 16 Rate Blood Pressure (mmHg) O2 Sat by Pulse Oximetry Oxygen Devices in Use Now: None Result Diagrams: 12/02/17 07:00 12/02/17 07:00 Microbiology and Other Data: Microbiology 11/29/17 20:20 Urine Culture - Preliminary Urine Enterococcus Faecalis 11/29/17 17:25 Gram Stain - Final Body Fluid - Not Otherwise Specified Body Fluid Culture - Preliminary No Growth Day 1 Assess/Plan/Problems-Billing Assessment: - Patient Problems (1) Pelvic mass Current Visit: Yes Status: Acute Code(s): R19.00 - INTRA-ABD AND PELVIC SWELLING, MASS AND LUMP, UNSP SITE SNOMED Code(s): 97819410 Comment: -Presumed abscess on admission, however, 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 fecalis consistent with UTI in urinalysis -D/W Dr. Nguyễn and reviewed laboratory data with him in person; given elevated creatinine in fluid collection, it seems the fluid is consistent with urine that is loculated from a likely bleeding surgical anastomosiscausing gross hematuria; Dr. Nguyễn mentions he will touch-base with Urologist in [facility] -Given Urine culture shows E. fecalis and fluid culture is normal, vancomycin has been recommended to be D/Cddefer with Dr. Solano -Continue Augmentin likely for 10-14 days; will confirm duration with Dr. Solano in AM prior to planned D/C (2) Anemia Current Visit: Yes Status: Acute Code(s): D64.9 - ANEMIA, UNSPECIFIED SNOMED Code(s): 932927403 Comment: #Anemia of chronic disease with Iron deficiency Anemia: -SIMEON is likely due to gross hematuria -AOCD is likely due to multiple comorbidities such as psoriatic arthritis and RA -Given 500 mg of Iron Sucrose 11/30 -Folate and B12 levels normal (3) Hypokalemia Current Visit: Yes Status: Acute Code(s): E87.6 - HYPOKALEMIA SNOMED Code( s): 61077974 Comment: -Resolved -Continue watchful waiting (4) Peripheral neuropathy Current Visit: Yes Status: Acute Code(s): G62.9 - POLYNEUROPATHY, UNSPECIFIED SNOMED Code(s): 666372940 Comment: -Idiopathic -Continue Gabapentin (5) DVT prophylaxis Current Visit: Yes Status: Acute Code(s): AAM9482 - SNOMED Code(s): 710257219 Comment: -Hold pharmacologic prophylaxis -Continue SCDs and FLORA stockings Status and Disposition: -As above -For possible D/C home in AM -Appreciate PT eval
[2017-12-03 07:25] LABS: ABS Basophils 0 10^3/ul (0-0.2); ABS Eosinophils 0.2 10^3/ul (0-0.6); ABS Lymphocytes 1.2 10^3/ul (1.0-4.8); ABS Monocytes 0.7 10^3/ul (0-0.8); ABS Neutrophils 5.4 10^3/ul (1.5-7.7); ABS Nucleated RBC 0 10^3/ul; Hematocrit 31 % (42-52); Hemoglobin 10.8 g/dl (14.0-18.0); Lymphocyte % 16.2 % (25-47); Mean Corpuscular HGB Conc 35 g/dl (31-36); Mean Corpuscular Hemoglobin 33 pg (27-31); Mean Corpuscular Volume 94 fL (80-94); Mean Platelet Volume 7.3 um3 (7.4-10.4); Nucleated Red Blood Cells % 0; Platelet Count 331 10^3/ul (150-450); Red Blood Count 3.28 10^6/ul (4.00-5.40); Red Cell Distribution Width 15 % (10.5-15); White Blood Count 7.7 10^3/ul (3.5-10.8)
[2017-12-03 07:38] LABS: EGFR Non-African American 96.1 (>60)
[2017-12-03] MEDS: Gabapentin CAP(*) 300 MG PO SCH (07:57)
[2017-12-03] MEDS: Amoxicillin/Clavulanate TAB* 875 MG PO SCH (07:57)
[2017-12-03] MEDS: Pyridoxine TAB* 50 MG PO SCH (07:58)
[2017-12-03] MEDS: amLODIPine TAB* 5 MG PO SCH (07:58)
[2017-12-03] MEDS: Cholecalciferol TAB* 1000 UNITS PO SCH (07:58)
[2017-12-03] MEDS: Folic Acid TAB* 1 MG PO SCH (07:58)
[2017-12-03] MEDS: Cyanocobalamin TAB* 500 MCG PO SCH (07:59)
[2017-12-03 12:06] VITALS: BP 111/67
--- NOTE | 2017-12-03 12:11 | CONS ---
CC: Dr. Hakeem Yun, Department of Urology, [facility], [place] * CONSULTATION REPORT: DATE OF CONSULT: 12/03/17 HISTORY OF PRESENT ILLNESS: Mr. Small is a 67-year-old white male who was diagnosed with Harrison 7 adenocarcinoma of the prostate. He was referred to Dr. Yun at [facility] where he underwent a robotic radical prostatectomy on 11/12/17. The procedure was uncomplicated. According to Dr. Yun, the vesico-urethral anastomosis was very satisfactory and there was no leak when tested at the end of the surgery. Postoperatively, he was noted to have on and off gross hematuria, but no clot retention. Ten days postoperatively, he underwent a cystogram in preparation for catheter removal. There was noted to be an extravasation at the anastomosis site and Dr. Yun decided to keep the Maguire catheter in place. The patient presented to the emergency room on 11/29/17 with lower abdominal pain,high-grade fever and chills. His urine analysis was positive for infection. The urine in the Maguire catheter was bloody. Abdominal tenderness noted on exam. No CVA tenderness. CT of the abdomen and pelvis showed normal kidneys, no hydronephrosis, but there was a rather large multiloculated fluid collection in the pelvis. After consultation with Dr. Yun, the patient was admitted to our hospital and Dr Bond, from , placed a percutaneous drain to drain the pelvic collection. The creatinine on the pelvic collection was very elevated, consistent with urinoma. The patient was placed on IV Zosyn and by next morning, his temperature was down and he was feeling much better. The urine culture and culture on the abdominal fluid both showed Enterococcus faecalis sensitive to all antibiotics. The gross hematuria persisted, and it was assumed it is arising from the anastomosis site. The Maguire catheter was placed under gentle traction for 24 hours and the drainage from the peritoneal drain significantly slowed down, and the gross hematuria resolved. The patient was observed for another 24 hours after the traction was released. Urine was mostly clear when he was resting and would turn somewhat bloody when he is physically active. The drainage from his drain was significantly down to about 50 cc per shift. The patient was then shifted from the IV Zosyn to oral Augmentin and he remained afebrile. The patient is being discharged home today on Augmentin. The pelvic drain is still in place and the patient was instructed to measure the drainage fluid every 8 hours. I will see him in my office in 3 to 4 days and will recheck the amount of drainage and send the drainage fluid again for creatinine, The patient will then have to follow with Dr. Yun regarding repeating the CT of the abdomen, and repeating the cystogram to decide regarding the Maguire catheter removal. [id number]/CPS #: [id number] MTDD
--- NOTE | 2017-12-04 10:21 | DS ---
CC: Ricky Moreland MD; Dr. Solano; Otoniel Alberto MD DISCHARGE SUMMARY: DATE OF ADMISSION: DATE OF DISCHARGE: 12/03/17 DISCHARGE DIAGNOSES: 1. 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 2. Urinary tract infection. 3. Anemia of chronic disease with iron-deficiency anemia, status post given 500 mg of iron sucrose o n 11/30/17. 4. Gross hematuria, likely secondary from bleeding status post surgical anastomosis. 5. History of peripheral neuropathy. DISCHARGE MEDICATIONS: As follows: 1. Tylenol 650 mg p.o. q. 6 p.r.n. 2. Amlodipine 10 mg p.o. daily. 3. Amoxicillin/clavulanic (Augmentin) 875 mg p.o. b.i.d. for 7 more days. 4. Cholecalciferol 4000 units p.o. daily. 5. Cyanocobalamin 500 mcg p.o. daily. 6. Folic acid 1 mg p.o. daily. 7. Gabapentin 600 mg p.o. q.h.s. 8. Gabapentin 300 mg p.o. q.a.m. 9. Pyridoxine 100 mg p.o. daily. 10. Calcipotriene 120 g cream topically daily. 11. Etanercept 50 mg subcu weekly. 12. Floranex tablet 1 tab p.o. daily for 10 days. HISTORY OF PRESENT ILLNESS/HOSPITAL COURSE: The patient is a 67-year-old gentleman with hi story of rheumatoid arthritis, hypertension, and prostate carcinoma, status post recent robotic prost atectomy in [place], [place] on 11/11/17, with a diagnosed Harrison 7 adenocarcinoma of the prostate at that time. He was referred to Dr. Yun of [facility] where he underwent the aforement ioned robotic radical prostatectomy on 11/12/17, where the procedure was reported to be uncomplicated . The anastomosis at the end of the surgery according to Dr. Yun was very satisfactory and did not have any leak when tested at the end of the surgery. Postoperatively, he was noted to have an inter mittent gross hematuria without any clot retention. Ten days postoperatively, he then underwent a cy stogram in preparation for catheter removal where they noted an extravasation at the anastomosis site ; however, Dr. Yun decided to keep the Maguire catheter in place. The patient then presented to the emergency room on 11/29/17, with abdominal pain and high grade feve rs and chills. His urinalysis was suggestive of UTI and a CT of his abdomen and pelvis showed normal kidneys with no hydronephrosis with multiloculated collection in his pelvis, initially thought to be due to pelvic abscess. He was subsequently placed on Zosyn and Vancomycin and was referred to Dr. Preeti Acosta and given the pelvic drain, is draining yellowish fluid that appears to be urine, Dr. Fabio weller suggested that this might actually be either a seroma and/or possible urine collection. Hence, cre atinine levels of the collection were sent and was compared to his creatinine serum levels and the re sults suggests that indeed that it was likely a urinoma. He was then subsequently placed on Augmenti n when Zosyn and vancomycin was discontinued and has subsequently improved from this. Given patient i s also on methotrexate, he has been advised to follow up with his primary care physician immediately if he feels nauseated and/or having any abdominal pain and feeling ill given Augmentin can cause kendrick sient increase in methotrexate level. However, he only has 7 days remaining of Augmentin and hence w e will continue watchful waiting. The patient was advised to follow up and/or call his PCP within 3 days post discharge and to call [facility] if his PCP cannot see him any sooner and to c ontact his PCP first and to make sure he agrees that he is appropriate to be seen in an outpatient in the set of the ER. He was also advised to measure his pelvic drain regularly as instructed and to f ollow up with Dr. Nguyễn either on Sunday or of this week and to call [phone] to conf ir and/or make an appointment. He was advised that if he sees any blood in his pelvic drain and/or worsening hematuria in his Maguire bag, especially with clots, to contact Dr. Nguyễn immediately. He was advised to call my office regarding any questions, concerns, and/or any clarifications regarding his discharge plans and prescriptions and more importantly he was informed that given he is on metho trexate and that Augmentin will be prescribed, that Augmentin can sometimes cause an elevation in met hotrexate levels and hence he will need to contact his PCP when he feels unwell and/or with subjectiv e feelings of nausea, vomiting, and/or abdominal pain. He was advised to take his medications as pre scribed. PHYSICAL EXAMINATION: Most recent vital signs of records with temperature of 98.3 degree Fahrenheit, 91 beats per minute heart rate, 18 per minute respiratory rate, blood pressure of 111/67. General a ppearance: The patient is awake, alert and oriented x3, not in acute distress. HEENT: Normocephali c, atraumatic. PERRLA. Extraocular muscles intact, negative for icterus. Moist oral mucosa. Negativ e throat erythema. Neck is soft, supple with no cervical lymphadenopathy. No JVD. Heart: S1, S2 wit hin normal limits, regular rate and rhythm, no murmurs, rubs and gallops. Chest: Clear to auscultat ion bilaterally. Good air entry. No wheezes, rales and rhonchi. Abdomen: Soft, nondistended, nonte nder. Normoactive bowel sounds 4xq. Extremities: No cyanosis, clubbing, or edema. Psychiatric: No active psychosis, depression, suicidal. No homicidal ideation. Skin is warm to touch. TIME SPENT: The total time spent evaluating patient, reviewing pertinent data and appropriate docume ntation is greater than 30 minutes. [id number]/CPS #: [id number]
== END 2017-12-03 14:55 | disposition home or self-care (01) | DRG 690 ==
LOC: ED 15:27 → MED 18:31
PROVIDERS: ADMIT Student in an Organized Health Care Education/Training Program; ATTEND Student in an Organized Health Care Education/Training Program
PROC: 0W9J30Z Drainage of Pelvic Cavity with Drainage Device, Percutaneous Approach (ICD-10-PCS; principal; 2017-11-29)
DX: N39.0 Urinary tract infection, site not specified (principal); B95.2 Enterococcus as the cause of diseases classified elsewhere; R31.0 Gross hematuria; N36.8 Other specified disorders of urethra; D50.9 Iron deficiency anemia, unspecified; M06.9 Rheumatoid arthritis, unspecified; C61 Malignant neoplasm of prostate; L40.50 Arthropathic psoriasis, unspecified; E87.6 Hypokalemia; G62.9 Polyneuropathy, unspecified; Z80.3 Family history of malignant neoplasm of breast; Z82.49 Family history of ischemic heart disease and other diseases of the circulatory system; Z87.891 Personal history of nicotine dependence; R19.00 Intra-abdominal and pelvic swelling, mass and lump, unspecified site; Z98.0 Intestinal bypass and anastomosis status; E66.9 Obesity, unspecified; Z68.33 Body mass index [BMI] 33.0-33.9, adult
CPT/HCPCS: 36415; 49406; 71045; 74177; 80048; 80053; 81003; 81015; 82565; 82570; 82607; 82728; 82746; 83540; 83550; 83605; 83735; 84100; 84484; 84520; 85025; 85027; 85610; 85730; 86140; 86850; 86900; 86901; 87040; 87070; 87077; 87086; 87186; 87205; 93005; 99284; A9270-GY; G8978-GP-CH; G8979-GP-CH; G8980-GP-CH; J1756; J2310; J2543; J3010; J3370; J3490

== ENCOUNTER → 2019-03-13 05:50 | Day surgery (SDC) | payer MEDICARE ==
--- NOTE | 2019-03-03 12:51 | HP ---
HISTORY AND PHYSICAL: DATE OF ADMISSION/SURGERY: 03/13/19 DATE OF OFFICE VISIT: 03/03/19 SURGEON: Martha Henao MD * (DICTATED BY MICHELLE ESTRELLA) PROCEDURE: Right knee arthroscopy with partial meniscectomy, possible chondroplasty, possible synovectomy, and possible plica excision. CHIEF COMPLAINT: Right knee pain. HISTORY OF PRESENT ILLNESS: Mr. Small is a 68-year-old gentleman with complaints of right knee pain. He has failed conservative treatment and elected to proceed with a right knee arthroscopy. PAST MEDICAL HISTORY: Rheumatoid arthritis, psoriasis, hypertension, VALARIE, and prostate cancer. PAST SURGICAL HISTORY: Prostatectomy, tonsillectomy. CURRENT MEDICATIONS: 1. Gabapentin 300 mg 3 times a day. 2. Amlodipine 10 mg a day. 3. Hydrochlorothiazide 12.5 mg a day. 4. Vitamin B6. 5. Vitamin B12. 6. Vitamin D3. 7. Enbrel. 8. Celebrex 200 mg twice a day. 9. Folic acid 1 mg a day. 10. Methotrexate 2.5 mg 8 tabs once per week. ALLERGIES: No known drug allergy. FAMILY HISTORY: Cancer, hypertension, coronary artery disease. SOCIAL HISTORY: This is a 68-year-old gentleman who lives with his . He is a former smoker, who quit in 2010. He denies using drugs. REVIEW OF SYSTEMS: A complete 14-point review of systems was reviewed with the patient, is all negative and noncontributory. He denies history of DVTs, PE, hepatitis, HIV or anesthesia problems. PHYSICAL EXAMINATION GENERAL: He is well-developed, well nourished, in no acute distress. VITAL SIGNS: He stands 71 inches tall, weighs 254 pounds with blood pressure 134/84, his heart rate 80. HEENT: Normocephalic, atraumatic. NECK: Supple, no palpable lymph nodes. PULMONARY: Lungs are clear to auscultation bilaterally. CARDIO: Regular rate and rhythm. Strong S1, S2. ABDOMEN: Soft, nontender, nondistended. MUSCULOSKELETAL: Right lower extremity: Skin is intact. There are no open wounds or abrasions. There is [id number] effusion of the right knee joint. He has some tenderness over the medial joint line, positive Clara's, positive Apley's, negative Sasha. Range of motion 10 to 120 degrees of flexion with patellofemoral crepitus. He is able to dorsiflex and plantarflex. He has a 2+ dorsalis pedis pulses. Intact sensation. NEUROLOGICAL: He is alert and oriented x3. ASSESSMENT AND PLAN: Mr. Small is a 68-year-old gentleman with complaints of right knee pain and MRI confirms a medial meniscus tear. He is elected to proceed with a right knee arthroscopy with partial meniscectomy, possible chondroplasty, possible synovectomy, possible plica excision. The surgery is scheduled for 03/13/[address] Henao. Risks and benefits of the surgery were reviewed with the patient on today's visit and all his questions were answered. He will follow up with Dr. Henao in 2 weeks after the surgery. MICHELLE ESTRELLA [id number]/[facility] #: [id number] OLYA
[~2019-03-13 05:50] MED LIST: Acetaminophen TAB* 325 MG PO PRN; Buffered Lidocaine 1% SYRIN* 1 ML/SYRINGE INTRADERM ONE; Dexamethasone IV* 4 MG/ML 1 ML (4 MG) ONE; DiMENhydriNATE IV* 50 MG/ML VIAL IV PUSH PRN; EPINEPHRINE 1 MG/ML 1 ML VIAL ONE; Famotidine IV* 10 MG/ML 2 ML (20 mg) IV ONE; Famotidine IV* 10 MG/ML 2 ML (20 mg) ONE; Ketorolac INJ* 30 MG/ML 1 ML VIAL ONE; Lactated Ringers 1000 ML Bag* 1,000 ML IV SCH; Lidocaine 2% PF * 5 ML VIAL ONE; Midazolam* 1 MG/ML 5 ML VIAL (5 MG) ONE; Naloxone* 0.4 MG/ML 1 ML VIAL IV PRN; Ondansetron INJ* 2 MG/ML VIAL ONE; Propofol* 10 MG/ML 20 ML BTL ONE; ROPIVACAINE 5 MG/ML 30 ML BTL (0.5%) ONE; ceFAZolin 2 GM in NS PREMIX(*) 2 GM/100 ML BAG IVPB ONE; fentaNYL* 50 MCG/ML 2 ML VIAL (100 MCG VIAL) ONE; methylPREDNISolone ACETATE 80* 80 MG/ML 1 ML VIAL ONE; oxyCODONE TAB* 5 MG TAB PO PRN
[2019-03-13 10:26] VITALS: BP 162/87
--- NOTE | 2019-03-14 00:57 | OP ---
DATE OF OPERATION: 03/13/19 - [facility] DATE OF : 48 SURGEON: Martha Henao MD [employer]: MICHELLE Francis. Ms. Caicedo did help throughout the procedure with preparation of the leg, wound retraction, manipulation of the knee, and wound closure. ANESTHESIOLOGIST: Dr. Ray. ANESTHESIA: General. PRE-OP DIAGNOSES: Right knee medial meniscal tear, [id number] osteoarthritis. POST-OP DIAGNOSES: Right knee medial meniscal tear, lateral meniscal tear, [id number] osteoarthritis. OPERATIVE PROCEDURE: Right knee arthroscopy with partial medial meniscectomy, partial lateral meniscectomy, and patellofemoral chondroplasty. INDICATIONS: Mr. Small is a gentleman with the acute onset of medial joint line pain and mechanical symptoms. Conservative treatment failed to relieve his pain. MRI confirmed the medial meniscal tear. Due to continued pain and decreased quality of life, the patient elected to undergo right knee arthroscopy with partial meniscectomy and possible chondroplasty. Informed consent was obtained from the patient. He understood the risks of surgery included, but were not limited to bleeding, infection, damage to nearby structures, continued pain, need for further surgery, retear of the meniscus, progression of arthritis, stroke, heart attack, blood clot, and . He wished to proceed. SPECIMEN: None. COMPLICATIONS: None. ESTIMATED BLOOD LOSS: Less than 25 cc. INTRAOPERATIVE FINDINGS: Intraoperatively, the patient was noted to have multiple loose bodies in the joint, these were small bits of cartilage. He had grade 3 and 4 Outerbridge cartilage changes in both the lateral and patellofemoral compartments. He had a parrot beak-type tear in the posteromedial meniscus, he had a radial-type tear in the anterior part of the lateral meniscus. DESCRIPTION OF PROCEDURE: Mr. Small was identified in the preanesthesia unit. His right lower extremity was marked as the correct operative side. Informed consent was signed and placed in the chart. The patient was taken to the operating room and placed under anesthesia without difficulty. The right lower extremity was prepped and draped in the usual sterile fashion. Preop time-out was made to correctly identify the patient, side, and site. Appropriate perioperative antibiotics were given within 1 hour of incision. A 0.5-cm anterolateral portal incision was made with a 10 blade and carried down to the capsule. Trocar was introduced. As soon as the light and water sources were turned on, there was immediate visualization of the suprapatellar pouch. A tour of the knee joint was performed. Suprapatellar pouch showed no obvious abnormality other than multiple small loose bodies that appeared to be cartilage. The patellofemoral compartment had severe osteoarthritis and grade 3 and 4 Outerbridge cartilage changes. There was exposed subchondral bone and cartilage flapping. The medial gutter showed no loose bodies. There were small pieces of cartilage in the medial gutter. Medial compartment showed a parrot beak-type tear in the posteromedial meniscus. Grade 2 and 3 Outerbridge cartilage changes along the medial compartment cartilage. The ACL and PCL appeared to be intact. The knee was placed in a [id number] position. There was an anterolateral meniscal tear, which was a radial type with some displacement into the joint space. There were grade 3 and 4 Outerbridge cartilage changes with exposed subchondral bone. The lateral gutter showed no plica. There were small cartilage fragments that were small loose bodies. Under direct visualization, a medial portal incision was made. A probe was introduced and a second tour of the knee joint was performed. Shaver was introduced. Copious irrigation of knee joint was performed. All small cartilage fragments were carefully removed using the shaver and suction. A radiofrequency ablation wand was used to perform chondroplasty in the patellofemoral compartment. Any cartilage flaps were carefully smoothed. Straight biter and shaver were used to perform partial and medial meniscectomy. There was a parrot beak-type tear in the white-red zone of the posterior one- third of the medial meniscus. This was carefully excised with straight biter and shaver. A smooth border of the medial meniscus was obtained. Further probing of the meniscus showed no additional tears. A radiofrequency ablation wand was used to further smooth the edge of the meniscus. Next, the knee was placed in the [id number]-si-kamd position. Radial tear was excised using a shaver and radiofrequency ablation wand was used to further smooth the edges of the meniscus. Further probing of the lateral meniscus showed no additional tears. The knee was copiously irrigated with sterile saline. All instruments were removed. The incisions were closed using 3-0 nylon suture. Sterile Xeroform, 4x4s, and Webril were used to cover the incision. Cecil wrap and cold pack were placed over this. The patient's anesthesia was reversed without difficulty. He was taken to the PACU in stable condition. Intended weightbearing will be weightbearing as tolerated. Intended DVT prophylaxis will be aspirin. [id number]/[facility] #: [id number] MTDD
== END | disposition home or self-care (01) ==
LOC: OR 05:50
PROVIDERS: ATTEND Orthopaedic Surgery Adult Reconstructive Orthopaedic Surgery
DX: S83.241A Other tear of medial meniscus, current injury, right knee, initial encounter (principal); S83.281A Other tear of lateral meniscus, current injury, right knee, initial encounter; X58.XXXA Exposure to other specified factors, initial encounter; Y92.9 Unspecified place or not applicable; M17.11 Unilateral primary osteoarthritis, right knee; M06.9 Rheumatoid arthritis, unspecified; L40.9 Psoriasis, unspecified; I10 Essential (primary) hypertension; G47.33 Obstructive sleep apnea (adult) (pediatric); Z85.46 Personal history of malignant neoplasm of prostate; Z87.891 Personal history of nicotine dependence
CPT/HCPCS: J0690; J1040; J1100; J1885; J2250; J2405; J2704; J2795; J3010

== ENCOUNTER 2022-05-11 06:55 | Inpatient (IN) ==
[~2022-05-11 06:55] MED LIST changes: -Acetaminophen TAB* 325 MG PO PRN; +Buffered Lidocaine 1% SYRIN 1 ml INTRADERM ONE; -Buffered Lidocaine 1% SYRIN* 1 ML/SYRINGE INTRADERM ONE; -Dexamethasone IV* 4 MG/ML 1 ML (4 MG) ONE; -DiMENhydriNATE IV* 50 MG/ML VIAL IV PUSH PRN; -EPINEPHRINE 1 MG/ML 1 ML VIAL ONE; +Famotidine IV 10 MG/ML 2 ml VIAL (20 mg) IV ONE; -Famotidine IV* 10 MG/ML 2 ML (20 mg) IV ONE; -Famotidine IV* 10 MG/ML 2 ML (20 mg) ONE; -Ketorolac INJ* 30 MG/ML 1 ML VIAL ONE; -Lactated Ringers 1000 ML Bag* 1,000 ML IV SCH; +Lactated Ringers 1000 ml BAG 1,000 ML IV SCH; -Lidocaine 2% PF * 5 ML VIAL ONE; -Midazolam* 1 MG/ML 5 ML VIAL (5 MG) ONE; -Naloxone* 0.4 MG/ML 1 ML VIAL IV PRN; -Ondansetron INJ* 2 MG/ML VIAL ONE; -Propofol* 10 MG/ML 20 ML BTL ONE; -ROPIVACAINE 5 MG/ML 30 ML BTL (0.5%) ONE; -ceFAZolin 2 GM in NS PREMIX(*) 2 GM/100 ML BAG IVPB ONE; -fentaNYL* 50 MCG/ML 2 ML VIAL (100 MCG VIAL) ONE; -methylPREDNISolone ACETATE 80* 80 MG/ML 1 ML VIAL ONE; -oxyCODONE TAB* 5 MG TAB PO PRN
[2022-05-11] MEDS ORDERED: ceFAZolin 2 GM in NS PREMIX 2 GM/100 ML BAG IVPB ONE (07:45)
[2022-05-11] MEDS ORDERED: Famotidine IV 10 MG/ML 2 ml VIAL (20 mg) ONE (07:48)
[2022-05-11] MEDS ORDERED: Midazolam 5 mg/5 ml VIAL 1 mg/ml 5 ml VIAL (5 mg) ONE (07:48)
[2022-05-11] MEDS ORDERED: fentaNYL 100 mcg/2 ml 50 MCG/ML VIAL ONE ×3 (07:49→11:06)
[2022-05-11] MEDS ORDERED: ROPIVACAINE 5 MG/ML 30 ML BTL (0.5%) ONE ×2 (07:49→08:40)
[2022-05-11] MEDS ORDERED: Naloxone 0.4 mg VIAL 0.4 mg/ml 1 ml VIAL IV PRN (08:46)
[2022-05-11] MEDS ORDERED: fentaNYL 100 mcg/2 ml 50 MCG/ML VIAL IV PRN (08:46)
[2022-05-11] MEDS ORDERED: HYDROmorphone 1 MG/1 ML SYRINGE IV PRN (08:46)
[2022-05-11] MEDS ORDERED: Midazolam 2 mg/2 ml VIAL 1 mg/ml 2 ml VIAL (2 mg) ONE (09:11)
[2022-05-11] MEDS ORDERED: Phenylephrine IV 10 MG/ML 1 ml VIAL ONE (09:11)
[2022-05-11] MEDS ORDERED: Acetaminophen IV 1 GM/100ML 1,000 MG/100 ML BAG IV ONE ×2 (09:11→11:41)
[2022-05-11] MEDS ORDERED: Lidocaine 2% PF 5 ML VIAL ONE (09:11)
[2022-05-11] MEDS ORDERED: Ondansetron 4 mg VIAL 2 MG/ML 2 ml VIAL ONE (09:11)
[2022-05-11] MEDS ORDERED: Propofol 10 MG/ML 20 ML BTL ONE ×6 (09:11→11:54)
[2022-05-11] MEDS ORDERED: Dexamethasone IV 4 MG/ML VIAL 1 ml VIAL ONE (09:11)
[2022-05-11] MEDS ORDERED: Glycopyrrolate IV 0.2 MG/ML 1 ML VIAL ONE (10:23)
[2022-05-11] MEDS ORDERED: Lactulose 30 ml UDC PO PRN (10:47)
[2022-05-11] MEDS ORDERED: Morphine 2 MG/ML SYRINGE IV PRN (10:47)
[2022-05-11] MEDS ORDERED: Ondansetron 4 mg VIAL 2 MG/ML 2 ml VIAL IV PRN (10:47)
[2022-05-11] MEDS ORDERED: Magnesium Hydroxide LIQ 30 ML UDC PO PRN (10:47)
[2022-05-11] MEDS ORDERED: Ondansetron ODT 4 mg TAB 4 MG TAB PO PRN (10:47)
[2022-05-11] MEDS: Lactated Ringers 1000 ml BAG 1,000 ML IV SCH (14:31)
[2022-05-11] MEDS: ceFAZolin 1 GM ADVAN 1 GM in NS 0.9% 50 ML 50 ML IVPB SCH (18:16)
[2022-05-11] MEDS: Magnesium Hydroxide LIQ 30 ML UDC PO SCH (21:05)
[2022-05-12] MEDS: Lactated Ringers 1000 ml BAG 1,000 ML IV SCH (00:57)
[2022-05-12] MEDS: ceFAZolin 1 GM ADVAN 1 GM in NS 0.9% 50 ML 50 ML IVPB SCH ×2 (02:47→10:31)
[2022-05-12 06:00] LABS: Hematocrit 36 % (42-52); Hemoglobin 12.5 g/dL (14.0-18.0); Mean Platelet Volume 8.1 fL (7.4-10.4); Platelet Count 159 10^3/uL (150-450)
[2022-05-12 06:17] LABS: Calcium 8.8 mg/dL (8.6-10.3); Potassium 4.2 mmol/L (3.5-5.0)
[2022-05-12 06:23] LABS: eGFR CKD-EPI 92.3 (>60)
[2022-05-12] MEDS: Magnesium Hydroxide LIQ 30 ML UDC PO SCH (08:09)
[2022-05-12] MEDS ORDERED: Vitamin THERAPEUTIC TAB PO SCH (09:00)
[2022-05-12] MEDS ORDERED: Cholecalciferol (VIT D3) 1,000 unit TAB PO SCH (09:00)
[2022-05-12 11:36] VITALS: BP 109/62
== END 2022-05-12 13:08 | disposition home or self-care (01) | DRG 470 ==
LOC: AA 06:55 → INTOOBSV 06:55 → SSU 10:47
PROVIDERS: ADMIT Orthopaedic Surgery Adult Reconstructive Orthopaedic Surgery; ATTEND Orthopaedic Surgery Adult Reconstructive Orthopaedic Surgery